=== PATIENT | female | born 1950 | race Caucasian/White ===

== ENCOUNTER 2017-01-07 10:40 | Emergency (ER) | payer BC ==
[~2017-01-07] VITALS: Ht 157.5 cm; Wt 62.5 kg
[2017-01-07 11:04] VITALS: Ht 157.5 cm; Wt 62.5 kg
--- NOTE | 2017-01-07 12:25 | ERD ---
ER Documentation Chief Complaint Date/Time DATE: 01/07/17 TIME: 12:20 Chief Complaint BILATERAL LEG PAIN X1 MONTH. REFERRED BY PCP FOR LT LEG DOPPLER. HPI 66-year-old female with a history of type 2 diabetes, hypertension, hyperlipidemia, and COPD presents to the emergency department complaining of bilateral lower extremity pain 1 month. Patient describes the pain as throbbing and burning in nature, worse at night when laying down and straightening on her legs. Patient denies any pain with walking. Patient states she has taken Celebrex and Mobic for her symptoms and experienced temporary relief. She denies any swelling or erythema. Patient denies any injury. She was seen by her primary care physician, Dr. Ríos, and was referred to the emergency department for bilateral lower extremity Doppler ultrasound. Patient denies any chest pain, shortness of breath. She states she is able to walk without discomfort. Patient denies any numbness or tingling. She also denies any history of prolonged immobility or recent surgery. ROS All systems reviewed and are negative except as per history of present illness. Medications Home Meds Active Scripts Hydrocodone/Acetaminophen ([place] 5-325 Tablet) 1 Each Tablet, 1 TAB PO Q6H Y for PAIN, #7 TAB Prov:GET MCCOY PA-C 01/07/17 Allergies Allergies: Coded Allergies: Levofloxacin (Verified Allergy, Intermediate, 05/14/07) PMhx/Soc Hx Cardiac Disorders: Yes (COPD, HNT) Hx Miscellaneous Medical Probl: Yes (PRE DIABETES) Hx Alcohol Use: No Hx Substance Use: No Hx Tobacco Use: No Physical Exam Vitals Vital Signs Date Time Temp Pulse Resp B/P Pulse Ox O2 Delivery O2 Flow Rate FiO2 01/07/17 11:04 98.6 88 16 118/65 93 Physical Exam Const: Well-developed, well-nourished, no acute distress Head: Atraumatic Eyes: Normal Conjunctiva ENT: Normal External Ears, Nose and Mouth. Neck: Full range of motion..~ No meningismus. Resp: Clear to auscultation bilaterally Cardio: Regular rate and rhythm, no murmurs Abd: Soft, non tender, non distended. Normal bowel sounds Skin: No erythema, ecchymosis, petechiae, or swelling of lower extremities. . No petechiae or rashes Back: No midline or flank tenderness Ext: Lower extremities warm and well perfused. Brisk capillary refill no tenderness to palpation of the lower calves. Lower extremity strength at knee and ankle joints 5 out of 5, equal and bilateral. Sensation intact to distal lower extremities bilaterally. No cyanosis, erythema, or pitting edema. Patient able to ambulate without difficulty. Neur: Awake and alert Psych: Normal Mood and Affect Procedures/MDM PROCEDURE: US Lower extremity Venous. CLINICAL INDICATION: Lower extremity pain and swelling TECHNIQUE: Multiple sonographic images of the bilateral lower extremity deep venous system was obtained utilizing grayscale, color-flow, compressive sonography and doppler imaging with augmentation. The images were reviewed on a PACS workstation. COMPARISON: None. FINDINGS: There is normal compressibility and flow within the bilateral common femoral, superficial femoral and popliteal veins. Flow is seen in the posterior tibial and peroneal veins. A 1.2 cm simple appearing cyst is identified in the left popliteal fossa. No vascularity is seen in this cyst. IMPRESSION: No sonographic evidence for deep venous thrombosis. 1.2 cm simple cyst in the left popliteal fossa. This may reflect a Alonso's cyst. RPTAT: AA .Jerry Estrella MD, MD Date Time Electronically viewed and signed by .Jerry Estrella MD, MD on 01/07/2017 14:50 .P/ CC: GET MCCOY-Angela Lower extremity ultrasound revealed evidence of a 1.2 cm left sided popliteal cyst. No evidence of DVT. Given the patient's history of diabetes, coronary artery disease, hyperlipidemia and COPD, her symptoms are likely consistent with Alonso's cyst versus vascular insufficiency. Patient denies any pain upon walking. At this time I do not believe an arterial Doppler scan is indicated. At this time low suspicion for DVT, PE, or lower extremity injury. Based on patient's history of present illness and physical examination the decision was made to discharge. The patient was re-evaluated after ED treatment and stabilizing measures, and symptoms have improved. There is no evidence of life threatening injuries or illnesses at this time. On re-examination, patient resting in no distress, stable vital signs, reports feeling better and safe for discharge with outpatient follow up with PMD in 1-2 days. Patient given return precautions. Departure Diagnosis: Primary Impression: Bilateral leg pain Additional Impression: Popliteal cyst Laterality: left Qualified Code: M71.22 - Popliteal cyst, left GET MCCOY PA-C Jan 07, 2017 12:25
--- NOTE | 2017-01-07 14:50 | RADRPT ---
PROCEDURE: US Lower extremity Venous. CLINICAL INDICATION: Lower extremity pain and swelling TECHNIQUE: Multiple sonographic images of the bilateral lower extremity deep venous system was obt ained utilizing grayscale, color-flow, compressive sonography and doppler imaging with augmentation. The images were reviewed on a PACS workstation. COMPARISON: None. FINDINGS: There is normal compressibility and flow within the bilateral common femoral, superficial femoral an d popliteal veins. Flow is seen in the posterior tibial and peroneal veins. A 1.2 cm simple appearing cyst is identified in the left popliteal fossa. No vascularity is seen in this cyst. IMPRESSION: No sonographic evidence for deep venous thrombosis. 1.2 cm simple cyst in the left popliteal fossa. This may reflect a Alonso's cyst. RPTAT: AA .Jerry Estrella MD, Date Time Electronically viewed and signed by .Jerry Estrella MD, on 01/07/2017 14:50 .P/
[2017-01-07] MEDS ORDERED: HYDR-906 PO (15:01)
[2017-01-07 15:05] VITALS: BP 112/60; PULSE 84; RESP 18; TEMP 98.2
== END 2017-01-07 15:06 | disposition home or self-care (01) ==
LOC: FTE 10:40
DX: M79.605 Pain in left leg (principal); M79.604 Pain in right leg; M71.22 Synovial cyst of popliteal space [Baker], left knee; J44.9 Chronic obstructive pulmonary disease, unspecified; I10 Essential (primary) hypertension
CPT/HCPCS: 93970

== ENCOUNTER 2017-12-27 07:45 | Day surgery (SDC) | END 2017-12-27 10:33 | disposition home or self-care (01) ==

== ENCOUNTER 2018-07-16 11:17 | Emergency (ER) | END 2018-07-16 14:14 | disposition home or self-care (01) ==